=== PATIENT | female | born 1985 | race Caucasian/White ===

== ENCOUNTER 2017-04-15 12:21 | Outpatient (CLI) | payer MEDICAID | END 2017-04-15 14:24 | disposition home or self-care (01) | LOC: OBT 12:21 → L-D 12:22 → OBT 14:24 | DX: O36.8130 Decreased fetal movements, third trimester, not applicable or unspecified (principal); Z3A.37 37 weeks gestation of pregnancy | CPT/HCPCS: 76815; 76818 ==

== ENCOUNTER 2017-04-23 09:32 | Inpatient (IN) | payer MEDICAID ==
[2017-04-23 10:18] LABS: RUPTURE FETAL MEMBRANES POSITIVE (NEGATIVE)
[2017-04-23] MEDS ORDERED: LACTATED RINGER'S 1,000 ML IV (10:52)
[2017-04-23] MEDS: LACTATED RINGER'S 1,000 ML IV ×2 (10:57→17:00)
[2017-04-23] MEDS ORDERED: LIDOCAINE 1% (MPF) 30 ML INJ INJ (11:00)
[2017-04-23] MEDS ORDERED: CARBOPROST 250 MCG INJ IM (11:00)
[2017-04-23] MEDS ORDERED: OXYTOCIN 30 UNITS/LR 500 ML IV ×2 (11:00)
[2017-04-23] MEDS ORDERED: BUTORPHANOL 2 MG INJ IV (11:00)
[2017-04-23] MEDS ORDERED: MISOPROSTOL 200 MCG TAB PR (11:00)
[2017-04-23] MEDS ORDERED: METHYLERGONOVINE 0.2 MG INJ IM (11:00)
[2017-04-23] MEDS ORDERED: IBUPROFEN 600 MG TAB PO (11:00)
[2017-04-23] MEDS: AMPICILLIN 2 GM/NS (PMX) 100 ML IV (11:02)
[2017-04-23 11:19] LABS: ADD MAN DIFF? NO
[2017-04-23 11:20] LABS: WHITE BLOOD COUNT 9.1 10^3/ul (4.8-10.8)
[2017-04-23 11:20] LABS: BASOPHILS % 0.3 % (0.0-2.0); EOSINOPHILS # 0.1 10^3/ul (0.0-0.5); EOSINOPHILS % 0.9 % (0.0-7.0); HEMATOCRIT 38.2 % (37.0-47.0); HEMOGLOBIN 13.4 g/dl (12.0-16.0); LYMPHOCYTES % 22.4 % (15.0-51.0); MEAN CORPUSCULAR HEMOGLOBIN 27.5 pg (29.0-33.0); MEAN CORPUSCULAR HGB CONC 35.1 g/dl (32.0-37.0); MEAN CORPUSCULAR VOLUME 78.3 fl (82.0-101.0); MEAN PLATELET VOLUME 10.4 fl (7.4-10.4); MONOCYTE # 0.8 10^3/ul (0.3-0.9); MONOCYTES % 8.3 % (0.0-11.0); NEUTROPHIL # 6.1 10^3/ul (1.6-7.5); NEUTROPHILS % 67.4 % (39.0-77.0); PLATELET COUNT 264 10^3/UL (140-415); RED BLOOD COUNT 4.88 10^6/ul (4.20-5.40); RED CELL DISTRIBUTION WIDTH 14.8 % (11.5-14.5)
[2017-04-23 11:45] LABS: PARTIAL THROMBOPLASTIN TIME 29.4 Sec (25.0-35.0)
[2017-04-23 12:29] LABS: INR 0.99; PROTIME 13.2 Sec (11.9-14.9)
[2017-04-23 14:26] LABS: HEPATITIS B SURFACE ANTIGEN NEGATIVE (NEGATIVE)
[2017-04-23] MEDS: OXYTOCIN 30 UNITS/LR 500 ML IV (14:43)
[2017-04-23] MEDS: AZITHROMYCIN 250 MG TAB PO (15:06)
[2017-04-23] MEDS ORDERED: FENTAnyl 2MCG/ML-ROPIV 0.2% 100 ML (15:39)
[2017-04-23] MEDS: AMPICILLIN 1 GM/NS (PMX) 50 ML IV ×3 (16:58→23:37)
[2017-04-23] MEDS ORDERED: NALOXONE (0.4 MG/ML) INJ IV (17:00)
[2017-04-23] MEDS ORDERED: DIPHENHYDRAMINE 50 MG INJ IV (17:00)
[2017-04-23 19:21] LABS: RAPID PLASMA REAGIN NONREACTIVE (NR)
[2017-04-23] MEDS: FENTAnyl 2MCG/ML-ROPIV 0.2% 100 ML BAG EPI ×2 (20:09→21:42)
[2017-04-23] MEDS: ONDANSETRON 4 MG INJ IV (20:18)
[2017-04-23] MEDS: OSELTAMIVIR 75 MG CAP PO (20:54)
[2017-04-24] MEDS: MINERAL OIL LIGHT 10 ML VIAL TOP (02:26)
[2017-04-24] MEDS: OXYTOCIN 30 UNITS/LR 500 ML IV (02:44)
[2017-04-24] MEDS: LACTATED RINGER'S 1,000 ML IV ×3 (02:48→22:09)
[2017-04-24] MEDS ORDERED: METHYLERGONOVINE 0.2 MG INJ IM (04:00)
[2017-04-24] MEDS ORDERED: ZOLPIDEM 5 MG TAB PO (04:00)
[2017-04-24] MEDS ORDERED: MISOPROSTOL 200 MCG TAB PR (04:00)
[2017-04-24] MEDS ORDERED: OXYCODONE/ASPIRIN (4.88/325) TAB PO (04:00)
[2017-04-24] MEDS ORDERED: CARBOPROST 250 MCG INJ IM (04:00)
[2017-04-24] MEDS ORDERED: OXYTOCIN 30 UNITS/LR 500 ML IV (04:00)
[2017-04-24] MEDS: BENZOCAINE 20% 56 ML SPRAY TOP (06:17)
[2017-04-24] MEDS: IBUPROFEN 600 MG TAB PO ×3 (06:17→18:04)
[2017-04-24] MEDS: WITCH HAZEL/GLYCERIN PAD PR (06:17)
[2017-04-24] MEDS: LANOLIN 7 GM TUBE TOP (06:18)
[2017-04-24] MEDS: SENNA/DOCUSATE NA (8.6MG/50MG) TAB PO ×2 (08:24→21:50)
[2017-04-24] MEDS: AZITHROMYCIN 250 MG TAB PO (15:15)
[2017-04-24] MEDS: OSELTAMIVIR 75 MG CAP PO (15:15)
[2017-04-25] MEDS: LACTATED RINGER'S 1,000 ML IV ×2 (04:25→10:48)
[2017-04-25] MEDS: OXYCODONE/ASPIRIN (4.88/325) TAB PO ×3 (05:21→17:40)
[2017-04-25] MEDS: IBUPROFEN 600 MG TAB PO ×4 (05:56→17:39)
[2017-04-25 06:57] LABS: ADD MAN DIFF? NO
[2017-04-25 07:16] LABS: WHITE BLOOD COUNT 11.2 10^3/ul (4.8-10.8)
[2017-04-25 07:16] LABS: BASOPHIL # 0.1 10^3/ul (0.0-0.1); BASOPHILS % 0.4 % (0.0-2.0); EOSINOPHILS # 0.2 10^3/ul (0.0-0.5); EOSINOPHILS % 1.3 % (0.0-7.0); HEMATOCRIT 30.9 % (37.0-47.0); HEMOGLOBIN 10.5 g/dl (12.0-16.0); LYMPHOCYTES # 3.4 10^3/ul (0.8-2.9); LYMPHOCYTES % 30.2 % (15.0-51.0); MEAN CORPUSCULAR HEMOGLOBIN 27.4 pg (29.0-33.0); MEAN CORPUSCULAR VOLUME 80.7 fl (82.0-101.0); MEAN PLATELET VOLUME 10.3 fl (7.4-10.4); MONOCYTE # 0.8 10^3/ul (0.3-0.9); MONOCYTES % 7.2 % (0.0-11.0); NEUTROPHIL # 6.7 10^3/ul (1.6-7.5); NEUTROPHILS % 60.4 % (39.0-77.0); PLATELET COUNT 225 10^3/UL (140-415); RED BLOOD COUNT 3.83 10^6/ul (4.20-5.40); RED CELL DISTRIBUTION WIDTH 15.1 % (11.5-14.5)
[2017-04-25] MEDS: AZITHROMYCIN 250 MG TAB PO (10:01)
[2017-04-25] MEDS: SENNA/DOCUSATE NA (8.6MG/50MG) TAB PO ×2 (10:01→20:52)
[2017-04-25] MEDS: OSELTAMIVIR 75 MG CAP PO ×3 (10:02→20:52)
[2017-04-26] MEDS: IBUPROFEN 600 MG TAB PO ×3 (00:25→13:14)
[2017-04-26] MEDS: DIPHTH/TET/ACEL PERTUSS (ADULT) 0.5 ML VIAL IM* (08:51)
[2017-04-26] MEDS: SENNA/DOCUSATE NA (8.6MG/50MG) TAB PO (09:45)
[2017-04-26] MEDS: OSELTAMIVIR 75 MG CAP PO (09:45)
[2017-04-26] MEDS: AZITHROMYCIN 250 MG TAB PO (09:45)
[2017-04-26] MEDS: LANOLIN 7 GM TUBE TOP (09:45)
[2017-04-26] MEDS: BENZOCAINE 20% 56 ML SPRAY TOP (09:46)
== END 2017-04-26 13:50 | disposition home or self-care (01) | DRG 775 ==
LOC: OBT 09:32 → PP1 04-24 04:42 → L-D 09:35 → OBT 10:38 → L-D 10:35
PROVIDERS: Obstetrics & Gynecology
PROC: 10E0XZZ Delivery of Products of Conception, External Approach (ICD-10-PCS; principal; 2017-04-24)
PROC: 0KQM0ZZ Repair Perineum Muscle, Open Approach (ICD-10-PCS; 2017-04-24)
DX: O70.1 Second degree perineal laceration during delivery (principal); Z37.0 Single live birth; Z3A.38 38 weeks gestation of pregnancy
CPT/HCPCS: 62319; 76818; 84112; 85025; 85610; 85730; 86592; 86850; 86900; 86901; 87340

== ENCOUNTER 2018-04-23 07:16 | Emergency (ER) | payer MEDICAID ==
[2018-04-23] MEDS: ACETAMINOPHEN 325 MG TAB PO (07:40)
[2018-04-23] MEDS: IBUPROFEN 600 MG TAB PO (07:41)
== END 2018-04-23 08:09 | disposition home or self-care (01) ==
LOC: FTE 07:16
DX: J03.90 Acute tonsillitis, unspecified (principal)
CPT/HCPCS: 99283; Z7502